=== PATIENT | female | born 1990 | race Caucasian/White ===

== ENCOUNTER 2019-02-23 09:49 | Emergency (ER) | payer OTHER ==
[2019-02-23] MEDS ORDERED: ACETAMINOPHEN 325 MG TABLET (FP) PO ONE (09:58)
[2019-02-23] MEDS ORDERED: ACETAMINOPHEN 325 MG TABLET (FP) ONE (10:00)
--- NOTE | 2019-02-23 10:03 | PDOC ---
History of Present Illness - General Chief Complaint: Sore Throat Stated Complaint: SORE THROAT Time Seen by Provider: 02/23/19 09:51 History Source: Patient Exam Limitations: No Limitations - History of Present Illness Initial Comments: 02/23/19 10:36 28y F With no past medical history presenting with complaint of sore throat and body aches since yesterday. The patient denies any recent travel, coughing, sneezing, nasal congestion, Shortness of breath, chest pain, abdominal pain, nausea, vomiting. Patient states that her daughter has been having symptoms of nasal congestion and cough. The patient has not taken any medication prior to arrival. ROS Constitutional - +body aches, fever, no reported Chills, HEENT: +sore throat no reported vision changes, Respiratory: no reported cough, sob, hemoptysis Cardiac: no reported chest pain, Abd/GI: no reported abd pain, nausea, vomiting, : no reported dysuria, frequency, discharge Musculskelatal -no reported back pain, joint swelling skin - no reported bruising, erythema, rash neurological: no reported headache, hematologic: no reported easy bruising, easy bleeding Physical Exam GENERAL: The patient is awake, alert, and fully oriented, Nontoxic - in no acute distress. HEAD: Normocephalic, atraumatic. EYES: extraocular movements intact, sclera anicteric, conjunctiva clear. ENT: Normal voice, Moist mucous membranes. Posterior pharynx slightly erythematous without any signs of exudate Or lesions, Posterior pharynx is symmetric and patent, No cervical lymphadenopathy, TMs were normal with light reflex bilaterally without any signs of erythema NECK: Normal range of motion, supple LUNGS: Breath sounds equal, clear to auscultation bilaterally. No wheezes, no rhonchi, no rales. HEART: Regular rate and rhythm, normal S1 and S2 without murmur, rub or gallop. ABDOMEN: Soft, nontender, No guarding, no rebound. No CVA tenderness EXTREMITIES: Normal range of motion, no edema. NEUROLOGICAL: No facial assymetry, Normal speech, PSYCH: Normal mood, normal affect. SKIN: Warm, Dry, normal turgor, ddx - Likely viral syndrome, consider possible strep Rapid strep was negative, patient was given Tylenol for her fever Supportive care was discussed Return precautions were discussed I discussed the physical exam findings, ancillary test results and final diagnoses with the patient. I answered all of the patient's questions. The patient was satisfied with the care received and felt comfortable with the discharge plan and treatment plan. The patient will call their primary care physician within 24 hours to arrange follow-up and will return to the Emergency Department with any new, persistent or worsening symptoms. Is this a multiple visit Asthma Patient?: No Past History - Past Medical History Allergies/Adverse Reactions: Allergies Allergy/AdvReac Type Severity Reaction Status Date / Time No Known Allergies Allergy Verified 02/23/19 09:50 Home Medications: Ambulatory Orders NK [No Known Home Medication] 02/23/19 COPD: No - Psycho Social/Smoking Cessation Hx Smoking Status: Yes Smoking History: Never smoked Number of Cigarettes Smoked Daily: 0 Hx Alcohol Use: Yes (OCASIONAL) Drug/Substance Use Hx: No *Physical Exam - Vital Signs Last Vital Signs Temp Pulse Resp BP Pulse Ox 101.2 F H 105 H 17 120/86 100 02/23/19 09:50 02/23/19 09:50 02/23/19 09:50 02/23/19 09:50 02/23/19 09:50 ED Treatment Course - Medications Given in the ED: ED Medications Discontinued Medications Generic Name Dose Route Start Last Admin Trade Name Freq PRN Reason Stop Dose Admin Acetaminophen 650 mg 02/23/19 09:58 02/23/19 10:01 Tylenol - PO 02/23/19 09:59 650 mg ONCE ONE Administration Discharge - Discharge Information Problems reviewed: Yes Clinical Impression/Diagnosis: Pharyngitis Qualifiers: Pharyngitis/tonsillitis etiology: other specified organisms Qualified Code(s): J02.8 - Acute pharyngitis due to other specified organisms Condition: Improved Disposition: HOME - Admission No - Follow up/Referral Referrals: Cuco Lawrence MD [Primary Care Provider] - - Patient Discharge Instructions Patient Printed Discharge Instructions: DI for Viral Pharyngitis Additional Instructions: Return to the emergency department immediately with ANY new, persistent or worsening symptoms including shortness of breath, inability to tolerate oral intake,high fevers, chest pain, or any other concerns. Your rapid strep was negative we will send it out for culture if it is positive we will call you Make sure you are well hydrated. Take ibuprofen or tylenol as needed for fever, body aches, sore throat. You MUST call and follow up with your doctor tomorrow for further evaluation of your symptoms. Results were discussed with you. Please make sure your doctor reviews the results of your emergency evaluation. Print Language: ARABIC - Post Discharge Activity
[2019-02-23 10:13] VITALS: BMI 34.3
[2019-02-23 10:48] VITALS: BP 129/82; PULSE 98; TEMP 100
== END 2019-02-23 10:48 | disposition home or self-care (01) ==
LOC: FER 09:49
DX: J02.8 Acute pharyngitis due to other specified organisms (principal)
CPT/HCPCS: 87070; 87077; 87880; 99282-25

== ENCOUNTER 2019-06-01 13:24 | Emergency (ER) | payer OTHER ==
[2019-06-01 13:37] VITALS: BP 126/90; PULSE 98; TEMP 97.8; BMI 35.1
--- NOTE | 2019-06-01 13:46 | PDOC ---
History of Present Illness - General Chief Complaint: Vomiting/Diarrhea Stated Complaint: N/V/DIARRHEA Time Seen by Provider: 06/01/19 13:42 - History of Present Illness Initial Comments: Dolores Reeves is a 29yo woman who presents with several episodes of watery diarrhea this morning, now with 2 episodes of vomiting since arrival in the ED. She reports that she was feeling fine yesterday. However, her daughter had a fever to 101F last night, and her son (ate 18m) vomited multiple times last night as well. Ms Reeves denies any fevers, chills, cough, congestion, chest pain, difficulty breathing, change in diet, or recent travel. She works in admitting in the hospital and was concerned that her symptoms could be due to flu, especially since she has young children at home. She also was concerned that she could be as she had an 2mo ago and has not yet followed up with ob/gyne. Past History - Past Medical History Allergies/Adverse Reactions: Allergies Allergy/AdvReac Type Severity Reaction Status Date / Time No Known Allergies Allergy Verified 06/01/19 13:27 Home Medications: Ambulatory Orders NK [No Known Home Medication] 02/23/19 COPD: No Other medical history: patient denies - Psycho Social/Smoking Cessation Hx Smoking Status: Yes Smoking History: Never smoked Have you smoked in the past 12 months: No Number of Cigarettes Smoked Daily: 0 Information on smoking cessation initiated: No Hx Alcohol Use: No Drug/Substance Use Hx: No Review of Systems - Review of Systems Comments:: General: No fevers, no chills, no weight or appetite change, no malaise HEENT: No changes in vision, no changes in hearing, no congestion, no sore throat CV: No chest pain, no palpitations, no LE edema Pulm: No SOB, no cough, no wheezing GI: See HPI : No frequency, no urgency, no dysuria Musc: No back pain, no joint swelling, no recent injury Skin: No rash, no lesions, no erythema Endo: No excessive thirst, no heat/cold intolerance Heme: No unusual bruising or bleeding, no swollen glands Neuro: No syncope, no numbness/tingling, no focal weakness Vasc: No claudication Psych: No recent change in mood, no SI or HI *Physical Exam - Vital Signs Last Vital Signs Temp Pulse Resp BP Pulse Ox 97.8 F 98 H 18 126/90 100 06/01/19 13:25 06/01/19 13:25 06/01/19 13:25 06/01/19 13:25 06/01/19 13:25 - Physical Exam General: Comfortable, no acute distress HEENT: PERRL, EOMI, MMM, voice normal, normal neck ROM Cards: RRR, no murmur appreciated Pulm: Comfortable on room air, clear to auscultation bilaterally Abd: Soft, nontender, nondistended Ext: Atraumatic. No LE edema. ROM intact. WWP Skin: Normal color, no rashes or lesions Neuro: A&Ox3, CN grossly intact, normal speech, motor/sensory grossly intact and symmetric Psych: Mood appropriate to situation Medical Decision Making - Medical Decision Making 06/01/19 13:42 Dolores Reeves is a 29yo woman who presents with several episodes of watery diarrhea this morning, now with 2 episodes of vomiting since arrival in the ED. She reports that her young children at home are both currently sick, one with fever one with vomiting. She was concerned that she might have the flu or that her symptoms might be due to . 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 More likely viral GI infection given no respiratory symptoms - UA, Urine preg - SL jeannie 06/01/19 15:02 - UA negative - Pregnncy negative - Flu pending - Pt able to tolerate PO - Will d/c home to follow up with her PMD. Return precautions given Discussed with Dr Eddie Chu PGY2 Discharge - Discharge Information Problems reviewed: Yes Clinical Impression/Diagnosis: Nausea vomiting and diarrhea Condition: Stable Disposition: HOME - Admission No - Follow up/Referral Referrals: [facility] [place] [facility] [Provider Group] - Patient Discharge Instructions Patient Printed Discharge Instructions: DI for Viral Gastroenteritis -- Adult Additional Instructions: Discharge Instructions: You were seen in the emergency department for nausea, vomiting, and diarrhea. You had a influenza test sent, and you will be called if your results are positive. Your symptoms are most likely caused by a viral infection, and you should feel better within a week without any additional treatment. Home Care and Follow Up: - Make sure you are drinking plenty of fluids while you are sick. Increase your normal fluid intake. It is OK if you do not feel like eating as long as you are staying well hydrated - You may use medications such as acetaminophen (Tylenol) 650-1000mg or ibuprofen (Advil, Motrin) 400-600mg every 6 hours as needed for pain or fever over 101F - Consider placing a humidifier in your room overnight to help relieve congestion and reduce drying of your nose and mouth. - Stay home from work until you are free of symptoms for at least 24 hours. - You should feel better within a week, though viral infection can sometimes last longer. If you are not feeling better in a week, follow up with your primary doctor. If you need to see a new doctor, you have been referred to the [facility] primary care [place]. - Seek immediate care if you have worsening symptoms, you are unable to stay hydrated, you develop high fevers over 104F that do not come down with medication, or you have any other medical emergency. - Post Discharge Activity Work/Back to School Note: Back to Work
[2019-06-01] MEDS ORDERED: ONDANSETRON *ODT* 4 MG TABLET SL ONE (13:51)
[2019-06-01] MEDS ORDERED: ONDANSETRON *ODT* 4 MG TABLET ONE (14:02)
[2019-06-01 15:04] LABS: EPITHELIAL CELLS FEW /hpf; URIC ACID CRYSTALS 2+ /hpf (NONE SEEN)
== END 2019-06-01 15:12 | disposition home or self-care (01) ==
LOC: FER 13:24
DX: R11.2 Nausea with vomiting, unspecified (principal); R19.7 Diarrhea, unspecified
CPT/HCPCS: 81003; 81015; 84703; 87804; 99282-25; Q0162